=== PATIENT | female | born 1990 | race Caucasian/White ===

== ENCOUNTER 2019-11-09 18:04 | Emergency (ER) | payer OTHER, SELFPAY ==
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
[2019-11-09 18:10] VITALS: BP 124/76; PULSE 78; RESP 16; TEMP 36.6; O2SAT 100
[2019-11-09 18:18] VITALS: RESP 14; O2SAT 99
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
[2019-11-09 19:00] VITALS: BP 120/80; PULSE 88; RESP 17; O2SAT 98
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
[2019-11-09 20:15] VITALS: BP 110/64; PULSE 82; RESP 12; O2SAT 100
== END 2019-11-09 20:15 | disposition home or self-care (01) ==
PROVIDERS: Emergency Provider Emergency Medicine; PCP Internal Medicine
DX: S06.0X1A Concussion with loss of consciousness of 30 minutes or less, initial encounter (principal); Z87.891 Personal history of nicotine dependence; F41.9 Anxiety disorder, unspecified; J45.909 Unspecified asthma, uncomplicated; F32.9 Major depressive disorder, single episode, unspecified; T74.11XA Adult physical abuse, confirmed, initial encounter; Y07.03 Male partner, perpetrator of maltreatment and neglect
CPT/HCPCS: 70450; 70486; 72125; 99284; A9270; L0140

== ENCOUNTER 2020-12-24 13:38 | Emergency (ER) | payer OTHER, SELFPAY ==
[2020-12-24 14:14] VITALS: BP 116/65; PULSE 85; RESP 16; TEMP 37.2; O2SAT 99
--- NOTE | 2020-12-24 14:31 | ED.URI ---
HPI - URI/Sore Throat General Chief Complaint: Upper Respiratory Infection Stated Complaint: runny nose/cough/sore throat Time Seen by Provider: 12/24/20 14:06 Source: patient and RN notes reviewed Mode of arrival: ambulatory Limitations: no limitations History of Present Illness HPI Narrative: Patient presents today complaining of a 2-day history of bilateral ear pressure, sore throat, chest congestion, rhinorrhea, mild cough. Denies fever or shortness of breath. History of asthma. She is taking Tylenol, Aleve, and ibuprofen without relief. Related Data Home Medications Medication Instructions Recorded Confirmed gabapentin 300 mg PO TID 09/05/19 12/24/20 L norgest/e.estradiol-e.estrad 30 tablet PO DAILY 11/09/19 12/24/20 [Ashlyna] Allergies Allergy/AdvReac Type Severity Reaction Status Date / Time No Known Allergies Allergy Verified 12/24/20 14:00 Review of Systems Review of Systems: Narrative: CONSTITUTIONAL: Denies body aches, fever, chills, or sweats. EYES: Denies visual changes, redness, or discharge. ENT: Denies congestion. + Bilateral ear pressure, sore throat, rhinorrhea CARDIOVASCULAR: Denies chest pain, palpitations, or edema. RESPIRATORY: Denies cough or dyspnea.+ Chest congestion GASTROINTESTINAL: Denies abdominal pain, nausea, vomiting, or diarrhea. GENITOURINARY: Denies dysuria or hematuria. SKIN: Denies rash, itching, or wounds. MUSCULOSKELETAL: Denies back pain, joint pain, or myalgia. NEUROLOGIC: Denies headache, numbness, tingling, or weakness. PSYCH: Denies depression or anxiety. [facility] Past Medical History Medical History (Updated 12/24/20 @ 14:38 by Rafia Jeffries, [facility], ) Anemia Ankle fracture, right Anxiety Asthma Depression Former smoker 1/2 PPD for 5 years, quit 04/14/19. Heart palpitations Ovarian cyst UTI (urinary tract infection) Surgical History Surgical History H/O wisdom tooth extraction Family History Family History (Updated 09/10/19 @ 16:30 by Carol Maya PA-C) Grandparent Hypertension Cerebrovascular accident Family history of coronary artery disease Mother COPD (chronic obstructive pulmonary disease) Father Melanoma Sibling Brain tumor Other Family history of malignant neoplasm of cervix Social History Social History (Updated 09/10/19 @ 16:32 by Carol Maya PA-C) Smoking packs per day: 0.5 Smoking cigarettes per day: 10.0 Years smoked: 5 Smoking pack-years: 2.50 Smoking status: Former smoker Tobacco type: cigarettes Second hand tobacco smoke exposure: No Smoking end date: 04/14/19 Alcohol intake: never Substance use: current Substance use type: marijuana Last use: 09/07/19 Gender identity (if verbalized by the patient): Female Spiritual care concerns: No Agree to blood products: Yes Exam Narrative: Exam Narrative: GENERAL: Well-appearing, well-nourished, and in no acute distress. HEAD: Normocephalic, atraumatic. EYES: EOMI. No redness or drainage. Conjunctivae normal. ENT: Mucous membranes pink and moist. Nares clear. No rhinorrhea. TMs normal bilaterally. Throat normal. Uvula midline. NECK: Normal AROM. Supple. No lymphadenopathy. CHEST: No respiratory distress. Mild decreased aeration throughout. HEART: Regular rate and rhythm. No murmur appreciated. Normal peripheral pulses. EXTREMITIES: Normal range of motion. No edema. SKIN: Warm, dry, no rash. Capillary refill normal. Normal skin turgor. NEURO: No focal deficits. Alert and oriented x3. Gait steady. PSYCH: Normal affect. No signs of depression or anxiety. Course Vital Signs Vital signs: Vital Signs Temperature 98.9 F 12/24/20 14:14 Pulse Rate 85 12/24/20 14:14 Respiratory Rate 16 12/24/20 14:14 Blood Pressure 116/65 12/24/20 14:14 Pulse Oximetry 99 12/24/20 14:14 Temperature 98.9 F 12/24/20 14:14 Pulse Rate 85 12/24/20 14:14 Resp
== END 2020-12-24 14:54 | disposition home or self-care (01) ==
PROVIDERS: Emergency Provider Nurse Practitioner; PCP Internal Medicine
DX: J06.9 Acute upper respiratory infection, unspecified (principal); Z87.891 Personal history of nicotine dependence
CPT/HCPCS: 99213; G0463

== ENCOUNTER 2022-06-30 09:14 | Emergency (ER) | payer OTHER, SELFPAY ==
--- NOTE | ~2022-06-30 | XR_ITS ---
EXAMINATION: XR chest 2V DATE: 06/30/2022 12:19 INDICATION: Fever and cough. TECHNIQUE: Frontal and lateral views of the chest were obtained. COMPARISON: Chest 2 views 09/09/2019 FINDINGS: The chest demonstrates clear lungs without pneumonia, pleural effusion, or pneumothorax. Th e heart size is normal. IMPRESSION: 1. No acute cardiopulmonary disease. Reviewed, dictated and finalized at location B.
[2022-06-30 09:24] VITALS: BP 114/78; PULSE 95; RESP 18; TEMP 36.1; O2SAT 100
[2022-06-30 10:16] LABS: Influenza A QL RT-PCR Negative (Negative); Influenza B QL RT-PCR Negative (Negative); SARS-CoV-2 RNA PCR Negative
--- NOTE | 2022-06-30 11:50 | ED.URI ---
HPI - URI/Sore Throat General Chief Complaint: Upper Respiratory Infection Stated Complaint: URI symptoms, swollen lymph nodes Time Seen by Provider: 06/30/22 11:11 Source: patient Mode of arrival: ambulatory Limitations: no limitations History of Present Illness HPI Narrative: This is a 31-year-old female that presents to the emergency department for cold symptoms ongoing over the last 5 days. Reports fever, cough, sore throat, and swollen lymph nodes. Reports similar symptoms in her children. Denies shortness of breath. Related Data Home Medications Medication Instructions Recorded Confirmed gabapentin 300 mg capsule 300 mg PO TID 09/05/19 12/24/20 L norgest/E estradiol-E estrad 30 tablet PO DAILY 11/09/19 12/24/20 0.15 mg-30 mcg (84)/10 mcg(7) tabs,3mos (Ashlyna) Allergies Allergy/AdvReac Type Severity Reaction Status Date / Time No Known Allergies Allergy Verified 06/30/22 11:04 Review of Systems Review of Systems: CONSTITUTIONAL: Reports fever ENT: Reports rhinorrhea, congestion, sore throat, and otalgia. RESPIRATORY: Reports cough. Denies dyspnea. All systems reviewed & are unremarkable except as noted in HPI and below PMFSH Past Medical History Medical History (Updated 06/30/22 @ 13:33 by Jenni Nair PA-C) Anemia Ankle fracture, right Anxiety Asthma Depression Former smoker 1/2 PPD for 5 years, quit 04/14/19. Heart palpitations Ovarian cyst UTI (urinary tract infection) Surgical History Surgical History H/O wisdom tooth extraction Family History Family History (Updated 09/10/19 @ 16:30 by Carol Maya PA-C) Grandparent Hypertension Cerebrovascular accident Family history of coronary artery disease Mother COPD (chronic obstructive pulmonary disease) Father Melanoma Sibling Brain tumor Other Family history of malignant neoplasm of cervix Social History Social History (Updated 06/30/22 @ 13:30 by Jenni Nair PA-C) Smoking packs per day: 0.5 Smoking cigarettes per day: 10.0 Years smoked: 5 Smoking pack-years: 2.50 Smoking status: Current some day smoker Tobacco type: cigarettes Second hand tobacco smoke exposure: No Alcohol intake: never Substance use: current Substance use type: marijuana Last use: 09/07/19 Gender identity (if verbalized by the patient): Female Spiritual care concerns: No Agree to blood products: Yes Exam Narrative: GENERAL: Well-appearing, well-nourished, and in no acute distress. HEAD: Normocephalic, atraumatic. EYES: EOMI. ENT: Nares clear, no rhinorrhea or epistaxis. Mucous membranes moist. Oropharynx with symmetric tonsillar hypertrophy and erythema, no exudate or other lesions. Bilateral TMs pearly corley non-bulging NECK: Supple. No adenopathy or masses. CHEST: Clear to auscultation. No respiratory distress. No wheezes rales or rhonchi HEART: Regular rate and rhythm. No murmur heard. Normal peripheral pulses. EXTREMITIES: Normal range of motion. No edema. SKIN: Warm, dry, no rash. NEURO: No focal deficits. Alert and oriented x3. PSYCH: Normal mood and affect Course Vital Signs Vital signs: Vital Signs Temperature 97.0 F L 06/30/22 09:24 Pulse Rate 95 06/30/22 09:24 Respiratory Rate 18 06/30/22 09:24 Blood Pressure 114/78 06/30/22 09:24 Pulse Oximetry 100 06/30/22 09:24 Oxygen Delivery Room Air 06/30/22 09:24 Temperature 97.0 F L 06/30/22 09:24 Pulse Rate 95 06/30/22 09:24 Respiratory Rate 18 06/30/22 09:24 Blood Pressure 114/78 06/30/22 09:24 Pulse Oximetry 100 06/30/22 09:24 Oxygen Delivery Room Air 06/30/22 09:24 MDM - URI/Sore Throat MDM Narrative Medical decision making narrative: Patient presents to the emergency department for cold symptoms ongoing over the last 5 days. She is afebrile and nontoxic-appearing. Oxygen saturation is normal on room air. Lungs are clear on
[2022-06-30 12:10] LABS: Basophils Percent Auto 0.3 % (0.2-1.2); Eosinophils Percent Auto 0.5 % (0-4.4); Hematocrit 40.8 % (37.0-47.0); Hemoglobin 13.7 g/dL (12.0-15.0); Immature Granulocyte Absolute 0.02 K/mm3 (0.00-0.031); Immature Granulocyte Percent A 0.2 % (0-0.5); Lymphocytes Absolute Auto 2.05 K/mm3 (0.9-3.2); Lymphocytes Percent Auto 23.1 % (18.3-44.2); Mean Corpuscular HGB Conc 33.6 g/dl (32-36); Mean Corpuscular Hemoglobin 32.1 pg (26-34); Mean Corpuscular Volume 95.6 fl (80-100); Mean Platelet Volume 9.2 fl (7.4-10.4); Monocytes Absolute Auto 0.7 K/mm3 (0.1-0.6); Monocytes Percent Auto 7.9 % (2.6-8.5); Platelet Count Result 236 k/mm3 (150-375); Red Blood Count 4.27 M/mm3 (4.2-5.4); Red Cell Distribution Width 12.8 % (11.5-14.5); White Blood Count 8.9 K/mm3 (4.5-10.0)
[2022-06-30 12:27] LABS: Alanine Aminotransferase 56 U/L (6-35); Albumin Level 3.9 g/dL (3.5-5.1); Alkaline Phosphatase 68 U/L (38-126); Anion Gap 10 mmol/L (8-16); Aspartate Amino Transferase 32 U/L (14-36); Bilirubin,Total 0.2 mg/dL (0.2-1.3); Blood Urea Nitrogen 6 mg/dL (7-17); Calcium 8.5 mg/dL (8.4-10.2); Carbon Dioxide 22 mmol/L (22-30); Chloride 106 mmol/L (98-107); Estimated CRCL calculation 92 ml/min; Estimated Glomerular Filt Rate > 60; Glucose 100 mg/dL (65-110); Potassium 3.8 mmol/L (3.4-5.0); Sodium 138 mmol/L (137-145)
[2022-06-30 13:17] LABS: Monoscreen Negative (Negative); Negative Monotest Control Negative (Negative); Positive Monotest Control Positive (Positive)
[2022-06-30 13:38] VITALS: BP 116/65; PULSE 80; RESP 18; O2SAT 100
== END 2022-06-30 13:40 | disposition home or self-care (01) ==
PROVIDERS: Physician Assistant; Emergency Provider Emergency Medicine; PCP Internal Medicine
DX: J06.9 Acute upper respiratory infection, unspecified (principal); Z20.822 Contact with and (suspected) exposure to COVID-19; J45.909 Unspecified asthma, uncomplicated; Z86.2 Personal history of diseases of the blood and blood-forming organs and certain disorders involving the immune mechanism; Z87.440 Personal history of urinary (tract) infections; Z87.891 Personal history of nicotine dependence
CPT/HCPCS: 36415; 71046; 80053; 85025; 86308; 87081; 87502; 87880; 99283; C9803; U0003; U0005

== ENCOUNTER 2023-05-19 12:20 | Outpatient (RCR) | payer OTHER, SELFPAY ==
--- NOTE | 2023-05-20 17:24 | STOPEVAL1 ---
Assessment and note entered by Jane Maire, NETWORK/TELECOM ENGINEER Reported Pain Level Pain Score 0: Self Report Assessment ST Clinical Summary VOICE EVALUATION Patient was seen for a Voice Evaluation at the request of her physician, Dr. Camejo. Patient reported, as mentioned above, she was diagnosed with bilateral vocal polyps, later calling them nodules, and had surgery to remove them in April of this year. She stated that she gave herself five days of vocal rest and then when she began speaking, her voice sounded almost normal, but then returned to the lower pitch boys voice that she describes as her speaking voice today. Additionally, she stated that today is one of the worse days. Patient admits to smoking cigarettes for at least the last eight years but that she is now down to half a pack a day. Patient's voice was evaluated using several measures. In general the decibel level of her voice during all tasks was judged to be greater than average. Average speaking voice for this speech therapy room usually ranges from 68-74 decibels. Patient's vocal volume ranged from 76-83 decibels throughout different tasks. When confronted with this, patient reported she did not realize she was speaking louder than normal but assumed her loudness was in the average range. Today, her pitch range was less than expected however she did range from 90-389 hertz. She reports she used to be able to reach higher pitch range when singing prior to onset of vocal nodules. Finally, patient continues to complain of pain at times in the left side of her neck and she occasionally feels pulling from the posterior left side of her neck when speaking. Patient was instructed in the use of both a vocal hygiene program and instructions for reducing the effects of gastroesophageal disease (GERD). Patient voiced understanding of all recommendations. It is recommended that patient continue in structured Speech Therapy twice weekly for four weeks for instruction of appropriate respiration/ phonation coordination, to expose the patient to a
--- NOTE | 2023-05-20 17:25 | STOPEVAL1 ---
Assessment and note entered by Jane Marie, GLOBAL CHIEF EXPERIENCE OFFICER Reported Pain Level Pain Score 0: Self Report Assessment ST Clinical Summary VOICE EVALUATION Patient was seen for a Voice Evaluation at the request of her physician, Dr. Camejo. Patient reported, as mentioned above, she was diagnosed with bilateral vocal polyps, later calling them nodules, and had surgery to remove them in April of this year. She stated that she gave herself five days of vocal rest and then when she began speaking, her voice sounded almost normal, but then returned to the lower pitch boys voice that she describes as her speaking voice today. Additionally, she stated that today is one of the worse days. Patient admits to smoking cigarettes for at least the last eight years but that she is now down to half a pack a day. Patient's voice was evaluated using several measures. In general the decibel level of her voice during all tasks was judged to be greater than average. Average speaking voice for this speech therapy room usually ranges from 68-74 decibels. Patient's vocal volume ranged from 76-83 decibels throughout different tasks. When confronted with this, patient reported she did not realize she was speaking louder than normal but assumed her loudness was in the average range. Today, her pitch range was less than expected however she did range from 90-389 hertz. She reports she used to be able to reach higher pitch range when singing prior to onset of vocal nodules . Finally, patient continues to complain of pain at times in the left side of her neck and she occasionally feels pulling from the posterior left side of her neck when speaking. Patient was instructed in the use of both a vocal hygiene program and instructions for reducing the effects of gastroesophageal disease (GERD). Patient voiced understanding of all recommendations. It is recommended that patient continue in structured Speech Therapy twice weekly for four weeks for instruction of appropriate respiration/ phonation coordination, to expose the patient to a
--- NOTE | 2023-06-24 14:02 | STOPDC ---
Assessment and note entered by Jane Marie CARDIOVASCULAR OR NURSE Evaluation Information Assessment Status Discharge - Pt Not Presen Assessment ST Clinical Summary DISCHARGE SUMMARY Patient was seen for an evaluation only. She did not schedule, contact facility, or attempt to return to structured Speech Therapy for dysphonia. Plan of Care ST Services Indicated Yes
== END 2023-06-26 12:14 | disposition home or self-care (01) ==
LOC: ANHST 12:20
PROVIDERS: PCP Internal Medicine; Visit Provider Otolaryngology
DX: J38.2 Nodules of vocal cords (principal)
CPT/HCPCS: 92524

== ENCOUNTER 2023-11-24 15:04 | Outpatient (CLI) | payer OTHER, SELFPAY ==
[2023-11-24 18:49] LABS: Hemoglobin 14.5 g/dL (12.0-15.0); Mean Corpuscular HGB Conc 32.2 g/dl (32-36); Mean Corpuscular Hemoglobin 30.7 pg (26-34); Mean Corpuscular Volume 95.3 fl (80-100); Platelet Count Result 353 k/mm3 (150-375); Red Blood Count 4.72 M/mm3 (4.2-5.4); Red Cell Distribution Width 12.6 % (11.5-14.5); White Blood Count 12.1 K/mm3 (4.5-10.0)
[2023-11-24 18:53] LABS: Alanine Aminotransferase 37 U/L (6-35); Albumin Level 4.3 g/dL (3.5-5.1); Alkaline Phosphatase 86 U/L (38-126); Anion Gap 7 mmol/L (8-16); Aspartate Amino Transferase 59 U/L (14-36); Bilirubin,Total 0.5 mg/dL (0.2-1.3); Blood Urea Nitrogen 9 mg/dL (7-17); Calcium 9.2 mg/dL (8.4-10.2); Carbon Dioxide 23 mmol/L (22-30); Chloride 108 mmol/L (98-107); Cholesterol 195 mg/dL (0-200); Estimated Glomerular Filt Rate > 60; Glucose 81 mg/dL (65-110); HDL Direct 47 mg/dL; Potassium 4.1 mmol/L (3.4-5.0); Sodium 138 mmol/L (137-145); Triglycerides 159 mg/dL (<150)
[2023-11-24 19:04] LABS: LDL Cholesterol Direct 133 mg/dL
[2023-11-24 19:39] LABS: Appearance Urine Clear (Clear); Bacteria Urine None Seen /hpf; Bilirubin Urine Negative (Negative); Blood Urine Negative (Negative); Color Urine Yellow (Yellow); Glucose Urine UA Negative (Negative); Ketones Urine Negative (Negative); Leukocyte Esterase Ur 1+ LEU/UL (Negative); Nitrate Urine Negative (Negative); Non Pathogenic Casts 0-2; Protein Urine Negative (Negative); RBC Urine 0-2 /hpf (0-2); Specific Grav Ur 1.021 (1.001-1.035); Squamous Epithelial Cell Urine Occasional /hpf (Few); Urobilinogen Urine 0.2 mg/dL (<2.0); pH Urine 5.5 (5.0-9.0)
[2023-11-24 19:43] LABS: Add Urine Microscopic? YES
[2023-11-24 20:06] LABS: Hemoglobin A1C 5.1 % (<5.7)
== END 2023-11-24 15:05 | disposition home or self-care (01) ==
LOC: ANHBWCLAB 15:06
PROVIDERS: PCP Nurse Practitioner Adult Health; Visit Provider Nurse Practitioner Adult Health
DX: R63.1 Polydipsia (principal); R39.89 Other symptoms and signs involving the genitourinary system
CPT/HCPCS: 36415; 80053; 80061; 83036; 84443; 85027

== ENCOUNTER 2024-02-12 12:27 | Emergency (ER) | payer OTHER, SELFPAY ==
--- NOTE | 2024-02-12 12:40 | ED.DENTAL ---
HPI - Dental/Oral General Chief complaint: Dental/Oral Stated complaint: Mouth pain Time Seen by Provider: 02/12/24 12:40 Source: patient, RN notes reviewed and old records reviewed Mode of arrival: ambulatory Limitations: no limitations History of Present Illness HPI Narrative: 33-year-old female presents to the [facility]. States she had a piece of food caught between her teeth 2-3 days ago, was able to get it out. Tried getting in with a primary care provider dental provider and cannot see 1 because it cost money upfront Inflammation noted. Tender to touch. States that she normally goes to [facility] Related Data Home Medications Medication Instructions Recorded Confirmed albuterol sulfate 90 mcg/actuation 1 puff inhalation Q4H PRN 11/24/23 02/12/24 aerosol inhaler (Ventolin HFA) Shortness Of Breath Or Wheezing gabapentin 300 mg capsule 300 mg PO TID 11/24/23 02/12/24 Allergies Allergy/AdvReac Type Severity Reaction Status Date / Time No Known Allergies Allergy Verified 02/12/24 12:33 Review of Systems Review of Systems: All systems reviewed & are unremarkable except as noted in HPI and below Constitutional: Constitutional: Reports no additional constitutional complaints Eyes: Eyes: Reports no additional eye complaints ENT: Reports as per HPI and Reports dental pain Cardiovascular: Cardiovascular: Reports no additional cardiovascular complaints, Denies chest pain and Denies dyspnea Respiratory: Respiratory: Reports no additional respiratory complaints, Denies chest congestion, Denies cough and Denies dyspnea Gastrointestinal: Gastrointestinal: Reports no additional gastrointestinal complaints, Denies abdominal pain, Denies nausea and Denies vomiting Musculoskeletal: Musculoskeletal: Reports no additional musculoskeletal complaints Integumentary/Breasts: Skin/Breast: Reports system reviewed and no additional complaints, except as docu Neurologic: Reports system reviewed and no additional complaints, except as documented Psychiatric: Psychiatric: Reports no additional psychiatric complaints Allergic/Immunologic: Allergic/Immunologic: Reports no additional allergic/immunologic complaints [facility] Past Medical History Medical History Anemia Ankle fracture, right Anxiety Asthma Depression Former smoker 1/2 PPD for 5 years, quit 04/14/19. Heart palpitations Ovarian cyst UTI (urinary tract infection) Surgical History Surgical History H/O wisdom tooth extraction Family History Family History Grandparent Hypertension Cerebrovascular accident Family history of coronary artery disease Mother COPD (chronic obstructive pulmonary disease) Father Melanoma Sibling Brain tumor Other Family history of malignant neoplasm of cervix Social History Social History Smoking packs per day: 0.5 Smoking cigarettes per day: 10.0 Years smoked: 5 Smoking pack-years: 2.50 Smoking status: Current every day smoker Tobacco type: cigarettes Second hand tobacco smoke exposure: No Alcohol intake: never Substance use: current Substance use type: marijuana Last use: 09/07/19 Lack of Transportation: No Lack of Food: Never True Current Housing: I Have Housing Concerned About Future Housing: No Difficulty Paying Gas/Electric Bills: No Difficulty Paying for Meds: No Currently Unemployed: No Education: High School Diploma/GED Difficulty w/ Childcare or Family Care: No Living arrangements: with family Additional occupation/education comments: [employer] Gender identity (if verbalized by the patient): Female Spiritual care concerns: No Agree to blood products: Yes Comments At the time of my signature, I reviewed and agree wi
[2024-02-12 12:44] VITALS: BP 118/73; PULSE 76; RESP 16; TEMP 36.4; O2SAT 100
== END 2024-02-12 13:07 | disposition home or self-care (01) ==
PROVIDERS: Emergency Provider Nurse Practitioner; PCP Nurse Practitioner Adult Health
DX: K04.7 Periapical abscess without sinus (principal); J45.909 Unspecified asthma, uncomplicated; Z87.891 Personal history of nicotine dependence
CPT/HCPCS: 99213; G0463

== ENCOUNTER 2024-03-11 18:31 | Emergency (ER) | payer OTHER, SELFPAY ==
--- NOTE | 2024-03-11 18:40 | ED.GENADULT ---
HPI - General Adult General Chief complaint: Skin/Abscess/Foreign Body Stated complaint: Swollen Hands/Arms Source: patient Mode of arrival: ambulatory Limitations: no limitations History of Present Illness HPI narrative: 33-year-old female presented for complaint allergic reaction to hornet stings sustained yesterday. States she was reaching in to the pool to clean out debris when she was stung the first time on the left hand, she was subsequently stung on the right forearm few moments later. Endorses swelling and itching to the sites. The left hand and forearm are more swollen today, resulting in decreased range of motion to the hand. Has taken Benadryl, aspirin, applied Epson salt, apple cider vinegar for symptoms. Denies lip, tongue, or throat swelling, shortness of breath or wheezing, n/v/d/f/c. Related Data Home Medications Medication Instructions Recorded Confirmed albuterol sulfate 90 mcg/actuation 1 puff inhalation Q4H PRN 11/24/23 03/11/24 aerosol inhaler (Ventolin HFA) Shortness Of Breath Or Wheezing gabapentin 300 mg capsule 300 mg PO TID 11/24/23 03/11/24 Allergies Allergy/AdvReac Type Severity Reaction Status Date / Time No Known Allergies Allergy Verified 03/11/24 18:44 Review of Systems Review of Systems: CONSTITUTIONAL: Denies body aches, fever, chills, or sweats. EYES: Denies visual changes, redness, or discharge. ENT: Denies rhinorrhea, congestion CARDIOVASCULAR: Denies chest pain, palpitations, or edema. RESPIRATORY: Denies cough or dyspnea. GASTROINTESTINAL: Denies abdominal pain, nausea, vomiting, or diarrhea. SKIN: reports swelling and itching to bilateral UEs. MUSCULOSKELETAL: Denies back pain, joint pain, or myalgia. NEUROLOGIC: Denies headache, numbness, tingling, or weakness. [facility] Past Medical History Medical History Anemia Ankle fracture, right Anxiety Asthma Depression Former smoker 1/2 PPD for 5 years, quit 04/14/19. Heart palpitations Ovarian cyst UTI (urinary tract infection) Surgical History Surgical History H/O wisdom tooth extraction Family History Family History Grandparent Hypertension Cerebrovascular accident Family history of coronary artery disease Mother COPD (chronic obstructive pulmonary disease) Father Melanoma Sibling Brain tumor Other Family history of malignant neoplasm of cervix Social History Social History Smoking packs per day: 0.5 Smoking cigarettes per day: 10.0 Years smoked: 5 Smoking pack-years: 2.50 Smoking status: Current every day smoker Tobacco type: cigarettes Second hand tobacco smoke exposure: No Alcohol intake: never Substance use: current Substance use type: marijuana Last use: 09/07/19 Lack of Transportation: No Lack of Food: Never True Current Housing: I Have Housing Concerned About Future Housing: No Difficulty Paying Gas/Electric Bills: No Difficulty Paying for Meds: No Currently Unemployed: No Education: High School Diploma/GED Difficulty w/ Childcare or Family Care: No Living arrangements: with family Additional occupation/education comments: [employer] Gender identity (if verbalized by the patient): Female Spiritual care concerns: No Agree to blood products: Yes Comments At time of signature, I have reviewed and agree with nursing past medical, surgical, social and family history unless otherwise noted. Please see nursing chart for further information. There is no relevant family history pertinent to the presenting complaint Exam Narrative: GENERAL: Well-appearing EYES: conjunctivae clear, and EOMI. ENT: Mucous membranes moist. Oropharynx without edema, erythema or lesions. No soft palate or uvula edema, n
[2024-03-11 18:42] VITALS: BP 135/96; PULSE 95; RESP 16; TEMP 37.3; O2SAT 98
[2024-03-11] MEDS: KETOROLAC (*BKC) 60 MG/2 ML VIAL IM (18:53)
[2024-03-11] MEDS: methylPREDNISolone SOD SUCC 125 MG VIAL IM (18:53)
[2024-03-11] MEDS: FAMOTIDINE 20 MG TABLET 40 MG PO (19:05)
== END 2024-03-11 19:20 | disposition home or self-care (01) ==
PROVIDERS: Emergency Provider Nurse Practitioner Family; PCP Nurse Practitioner Adult Health
DX: T63.451A Toxic effect of venom of hornets, accidental (unintentional), initial encounter (principal); J45.909 Unspecified asthma, uncomplicated
CPT/HCPCS: 96372; 99214; A9270; G0463; J1885; J2919

== ENCOUNTER 2024-08-17 11:19 | Emergency (ER) | payer OTHER, SELFPAY ==
--- NOTE | 2024-08-17 11:34 | ED.URI ---
HPI - URI/Sore Throat General Chief Complaint: Upper Respiratory Infection Stated Complaint: SORE THROAT/SWOLLEN GLANDS/RUNNY NOSE/CHILLS Time Seen by Provider: 08/17/24 11:34 History of Present Illness HPI Narrative: 33-year-old female with history of asthma presented for complaint cough, nasal congestion, sore throat body aches. Onset yesterday. Daughter with similar symptoms. Denies shortness of breath, wheezing, nausea, vomiting, diarrhea. Taking aspirin and DayQuil for symptoms. Smokes a pack per day. Related Data Home Medications Medication Instructions Recorded Confirmed gabapentin 300 mg capsule 300 mg PO TID 11/24/23 08/17/24 phentermine 37.5 mg tablet 37.5 mg PO DIRECTED 08/17/24 08/17/24 Allergies Allergy/AdvReac Type Severity Reaction Status Date / Time No Known Allergies Allergy Verified 08/17/24 11:28 Review of Systems Review of Systems: CONSTITUTIONAL: Reports body aches, fever, chills, or sweats. EYES: Denies visual changes, redness, or discharge. ENT: Reports rhinorrhea, congestion, sore throat CARDIOVASCULAR: Denies chest pain, palpitations, or edema. RESPIRATORY: Reports cough Denies dyspnea. GASTROINTESTINAL: Denies abdominal pain, nausea, vomiting, or diarrhea. SKIN: Denies rash NEUROLOGIC: Denies headache PMFSH Past Medical History Medical History Anemia Ankle fracture, right Anxiety Asthma Depression Former smoker 1/2 PPD for 5 years, quit 04/14/19. Heart palpitations Ovarian cyst UTI (urinary tract infection) Surgical History Surgical History H/O wisdom tooth extraction Family History Family History Grandparent Hypertension Cerebrovascular accident Family history of coronary artery disease Mother COPD (chronic obstructive pulmonary disease) Father Melanoma Sibling Brain tumor Other Family history of malignant neoplasm of cervix Social History Social History Smoking packs per day: 0.5 Smoking cigarettes per day: 10.0 Years smoked: 5 Smoking pack-years: 2.50 Smoking status: Current every day smoker Tobacco type: cigarettes Second hand tobacco smoke exposure: No Alcohol intake: never Substance use: current Substance use type: marijuana Last use: 09/07/19 Lack of Transportation: No Lack of Food: Never True Current Housing: I Have Housing Concerned About Future Housing: No Difficulty Paying Gas/Electric Bills: No Difficulty Paying for Meds: No Currently Unemployed: No Education: High School Diploma/GED Difficulty w/ Childcare or Family Care: No Living arrangements: with family Additional occupation/education comments: [employer] Gender identity (if verbalized by the patient): Female Spiritual care concerns: No Agree to blood products: Yes Exam Narrative: GENERAL: Mildly Ill-appearing, no acute distress. EYES: conjunctivae clear ENT: Mucous membranes moist. TM pearly corley with normal light reflex bilaterally; no tragal tenderness. Oropharynx not erythematous without lesions. Tonsils not enlarged and without exudate. No drooling, no hoarseness, no trismus, uvula midline. No tripod positioning, hot potato voice, or soft palate swelling. NECK: Supple. No lymphadenopathy CHEST: Clear and diminished to auscultation, breath sounds equal. No respiratory distress, speaks in full sentences. HEART: Regular rate and rhythm. No murmur heard. SKIN: Warm, dry, no rash. NEURO: Alert and oriented x3. Course Course Emergency Course: Patient is aware of diagnosis, understands and agrees to treatment plan. Anticipatory guidance given. Patient agrees to follow-up as directed and is aware of reasons to seek care at the emergency department. Portions of this record may have been created with voice recognition software Level of Care: Express Care Visit Vital Signs Vital signs: Vital Signs Temperature 98.2 F 08/17/24 11:41 Pulse Rate 94 08/17/24 11:41 Respiratory Rate 16 08/17/24 11:41 Blood Pressure 135/96 H 08/17/24 11:41 Pulse Oximetry 98 08/17/24 11:41 Temperature 98.2 F 08/17/24 11:41 Pulse Rate 94 08/17/24 11:41 Respiratory Rate 16 08/17/24 11:41 Blood Pressure 135/96 H 08/17/24 11:41 Pulse Oximetry 98 08/17/24 11:41 MDM - URI/Sore Throat MDM Narrative Medical decision making narrative: strep result reviewed with pt. declined viral testing, declined chest x-ray. Advise supportive treatments. Patient is appropriate for outpatient treatment and follow-up. Differential Diagnosis Differential diagnosis: Likely upper respiratory infection, viral infection and pharyngitis Lab Data Labs: Lab Results 08/17/24 Range/Units 11:46 POC Grp A Strep Screen Negative (Negative) Discharge Plan Discharge Clinical Impression: Viral infection Patient Disposition: Home, Self-Care Condition: Stable Instructions: Antibiotic Form, Acute Bronchitis (ED) Additional Instructions: Rapid strep swab was negative today You will be notified in a few days if the culture comes back positive for strep, and appropriate antibiotics will be called in at that time. if symptoms are due to a viral illness, it is not treated with antibiotics. Viral symptoms can be present for up to 10-14 days. Take steroid as directed Recommendations: Flonase spray and Zyrtec for sinus congestion Cough syrup may cause drowsiness; avoid driving or take it at night time. Tylenol every 8 hours as needed for pain/fever Soft foods, cool liquids, warm tea. Gargle with warm saltwater twice a day. Chloraseptic spray and throat lozenges. Rest and stay hydrated. --Follow up with your PCP --Go to the ER immediately if you cannot swallow your saliva, trouble breathing/wheezing, throat swelling, pain is persistent and severe Prescriptions: New benzonatate 200 mg capsule 200 mg PO TID PRN (Reason: cough) Qty: 20 0RF prednisone 50 mg tablet 50 mg PO DAILY Qty: 5 0RF No Action famotidine [Pepcid] 40 mg tablet 40 mg PO DAILY Qty: 10 0RF phentermine 37.5 mg tablet 37.5 mg PO DIRECTED gabapentin 300 mg capsule 300 mg PO TID L norgest/e.estradiol-e.estrad [Ashlyna] 0.15 mg-30 mcg (84)/10 mcg (7) tablets,dose pack,3 month 1 tablet PO DAILY Qty: 182 6RF albuterol sulfate [Ventolin HFA] 90 mcg/actuation HFA aerosol inhaler 1 puff inhalation Q4H PRN (Reason: Shortness Of Breath Or Wheezing) Qty: 8.5 3RF Follow-up/Referrals: Hilda,Ej Lozano MD [Primary Care Provider] -
[2024-08-17 11:41] VITALS: BP 135/96; PULSE 94; RESP 16; TEMP 36.8; O2SAT 98
[2024-08-17 11:51] LABS: EDSTREPNEGPOS1 Negative (Negative)
== END 2024-08-17 12:07 | disposition home or self-care (01) ==
PROVIDERS: Emergency Provider Nurse Practitioner Family; PCP Internal Medicine
DX: B34.9 Viral infection, unspecified (principal); F41.8 Other specified anxiety disorders; J45.909 Unspecified asthma, uncomplicated; F17.210 Nicotine dependence, cigarettes, uncomplicated
CPT/HCPCS: 87081; 87880; 99213; G0463

== ENCOUNTER 2024-08-26 08:46 | Emergency (ER) | payer OTHER, SELFPAY ==
--- NOTE | 2024-08-26 08:50 | ED.URI ---
HPI - URI/Sore Throat General Chief Complaint: Upper Respiratory Infection Stated Complaint: cough/dizzy / stuffy nose Time Seen by Provider: 08/26/24 08:49 Source: patient Mode of arrival: ambulatory Limitations: no limitations History of Present Illness HPI Narrative: Aiyana is a 33-year-old female patient presenting to the clinic today with complaints of cough, sinus congestion, feeling dizzy when coughing, shortness of breath, and stuffy nose x3 weeks. She reports that she was seen on August 16 and given prescription for Tessalon Perles and steroids however her symptoms have gotten worse. She is coughing up green/yellow phlegm. Feels as though she cannot lay flat and breath. When she coughs she says the shanks are moving. Also having ringing and pain in the right ear. No known recent fever, chills, or body aches MD elicited complaint: cough, nasal congestion and sinus pain Related Data Home Medications ?Medication ?Instructions ?Recorded ?Confirmed ?Last Taken ?Type gabapentin 300 mg capsule 300 mg PO TID 11/24/23 08/17/24 Unknown History phentermine 37.5 mg tablet 37.5 mg PO DIRECTED 08/17/24 08/17/24 Unknown History Allergies Allergy/AdvReac Type Severity Reaction Status Date / Time No Known Allergies Allergy Verified 08/17/24 11:28 Review of Systems Review of Systems: Pertinent positives per HPI. Patient denies any fever, chills, rash, headache, visual changes, chest pain, palpitations, nausea, vomiting, diarrhea, constipation, abdominal pain, or any urinary issues. [facility] Past Medical History Medical History Former smoker 1/2 PPD for 5 years, quit 04/14/19. Heart palpitations Anemia Depression Anxiety Ankle fracture, right Ovarian cyst UTI (urinary tract infection) Asthma Surgical History Surgical History H/O wisdom tooth extraction Family History Family History Grandparent Hypertension Cerebrovascular accident Family history of coronary artery disease Mother COPD (chronic obstructive pulmonary disease) Father Melanoma Sibling Brain tumor Other Family history of malignant neoplasm of cervix Social History Social History Smoking packs per day: 0.5 Smoking cigarettes per day: 10.0 Years smoked: 5 Smoking pack-years: 2.50 Smoking status: Current every day smoker Tobacco type: cigarettes Second hand tobacco smoke exposure: No Alcohol intake: never Substance use: current Substance use type: marijuana Last use: 09/07/19 Lack of Transportation: No Lack of Food: Never True Current Housing: I Have Housing Concerned About Future Housing: No Difficulty Paying Gas/Electric Bills: No Difficulty Paying for Meds: No Currently Unemployed: No Education: High School Diploma/GED Difficulty w/ Childcare or Family Care: No Living arrangements: with family Additional occupation/education comments: [employer] Gender identity (if verbalized by the patient): Female Spiritual care concerns: No Agree to blood products: Yes Comments At the time of my signature, I reviewed and agree with the nursing past medical, surgical, social, and family history. There is no relevant family history pertinent to the patient complaint. Exam Narrative: General: Well-developed, obese, in no apparent distress Head: Normocephalic, atraumatic Eyes: Pupils equally round and reactive to light bilaterally, EOM intact, sclera and conjunctive clear, no discharge, lids normal Ears: Left TM intact and congested, right TM intact, bulging, red,, ear canals clear, no drainage, grossly hearing normal. Nose: Nares patent, green nasal discharge, moderate inflammation, maxillary or frontal sinus tenderness. Mouth: Oral pharynx without lesions or masses, good dentition, MMM. Postnasal drip Neck: Supple, trachea midline, no enlargement of anterior or posterior cervical nodes, no thyroid masses or goiter palpable. Cardio: Regular rate and rhythm, s1 and s2 normal, no murmur appreciated. Resp: Inspiratory wheezing with expiratory rhonchi throughout lung hernández, no rales or rubs. Able to speak in full sentences without taking breath in between words, SpO2 is 100% on room air Course Course Emergency Course: Portions of this record may have been created with voice recognition software. Level of Care: Express Care Visit Vital Signs Vital signs: Vital signs reviewed MDM - URI/Sore Throat MDM Narrative Medical decision making narrative: At the time of visit patient is resting comfortably on the exam table. Patient appears to be nontoxic. Plan: I suspect patient has sinusitis, bronchitis, and right otitis media. Prescription for Augmentin, prednisone, and albuterol inhaler was sent to the pharmacy. Supportive measures were discussed with the patient and they voiced understanding discharge instructions and agrees to treatment plan. Return precautions reviewed Differential Diagnosis Differential diagnosis: Likely upper respiratory infection, croup, otitis media, sinusitis, viral infection, bronchitis, influenza, pharyngitis and other (COVID) Discharge Plan Discharge Clinical Impression: Bronchitis, Acute right otitis media Sinusitis Qualifiers: Sinusitis location: maxillary Chronicity: acute Recurrence: non-recurrent Qualified Code(s): J01.00 - Acute maxillary sinusitis, unspecified Patient Disposition: Home, Self-Care Condition: Stable Instructions: Antibiotic Form, Ear Infection (ED), Acute Bronchitis (ED), Rhinosinusitis (ED) Additional Instructions: Take prescription medications only as prescribed-albuterol inhaler, Augmentin, and prednisone Increase fluids and stay well hydrated Tylenol/motrin for pain/fever Flonase and OTC antihistamines as directed Vicks vapor rub to open sinuses Sinus rinses for congestion Cepacol spray, cough drops, throat lozenges, warm tea with honey/lemon, gargle salt water to soothe throat BRAT diet for diarrhea Clear liquids x 24 hours then advance as tolerated for nausea/vomiting Go to the ED if you develop a worsening in your condition- high fever not controlled by Tylenol or Motrin, dehydration, weakness, lethargy, shortness of breath, or chest pain. Follow up with your PCP in 3-5 days if symptoms persist. Patient Language: Danish Prescriptions: New amoxicillin-pot clavulanate 875-125 mg tablet 1 tablet PO Q12H 10 Days Qty: 20 0RF prednisone 50 mg tablet 50 mg PO DAILY 5 Days Qty: 5 0RF albuterol sulfate 90 mcg/actuation aerosol powdr breath activated 2 inh inhalation Q4-6H PRN (Reason: shortness of breath or wheezing) 30 Days Qty: 1 0RF No Action famotidine [Pepcid] 40 mg tablet 40 mg PO DAILY Qty: 10 0RF phentermine 37.5 mg tablet 37.5 mg PO DIRECTED benzonatate 200 mg capsule 200 mg PO TID PRN (Reason: cough) Qty: 20 0RF prednisone 50 mg tablet 50 mg PO DAILY Qty: 5 0RF gabapentin 300 mg capsule 300 mg PO TID L norgest/e.estradiol-e.estrad [Ashlyna] 0.15 mg-30 mcg (84)/10 mcg (7) tablets,dose pack,3 month 1 tablet PO DAILY Qty: 182 6RF albuterol sulfate [Ventolin HFA] 90 mcg/actuation HFA aerosol inhaler 1 puff inhalation Q4H PRN (Reason: Shortness Of Breath Or Wheezing) Qty: 8.5 3RF Follow-up/Referrals: UNKNOWN,DOCTOR [Non-Staff] - Stand Alone Forms: Work/School Release IP Time of Disposition: 09:13 Quality NIHSS Nursing Documentation ED NIHSS nursing documentation: reviewed/agree
[2024-08-26 08:58] VITALS: BP 123/87; PULSE 92; RESP 20; TEMP 36.7; O2SAT 100
== END 2024-08-26 09:13 | disposition home or self-care (01) ==
PROVIDERS: Emergency Provider Nurse Practitioner Family; PCP Internal Medicine
DX: J40 Bronchitis, not specified as acute or chronic (principal); H92.01 Otalgia, right ear; J01.00 Acute maxillary sinusitis, unspecified; F17.210 Nicotine dependence, cigarettes, uncomplicated; J45.909 Unspecified asthma, uncomplicated
CPT/HCPCS: 99213; G0463

== ENCOUNTER 2025-04-04 14:48 | Outpatient (CLI) | payer OTHER, SELFPAY ==
--- NOTE | ~2025-04-04 | XR_ITS ---
EXAM/ PROCEDURE: XR toe 4th LT min 2V, XR toe 5th LT min 2V - 04/04/2025 15:15 CDT HISTORY: 34 years old Female with foot pain COMPARISON: None available TECHNIQUE: Two view(s) each FINDINGS/ IMPRESSION: There are no fractures or dislocations.Joint spaces are within normal limits. Reviewed, dictated and finalized at location A.
--- NOTE | ~2025-04-04 | XR_ITS ---
EXAM/ PROCEDURE: XR foot RT min 3V - 04/04/2025 15:15 CDT HISTORY: 34 years old Female with foot pain COMPARISON: None available TECHNIQUE: Three view(s) FINDINGS/ IMPRESSION: There are no fractures or dislocations.Joint spaces are within normal limits. Reviewed, dictated and finalized at location A.
--- NOTE | ~2025-04-04 | XR_ITS ---
EXAM/ PROCEDURE: XR foot LT min 3V - 04/04/2025 15:15 CDT HISTORY: 34 years old Female with foot pain COMPARISON: None available TECHNIQUE: Three view(s) FINDINGS/ IMPRESSION: There are no fractures or dislocations.Joint spaces are within normal limits. Reviewed, dictated and finalized at location A.
--- OUTSIDE RECORDS SUMMARY | 2025-04-04 14:54 | XMS_ITS | Clinical Summary ---
Author Organization [facility] Address [address] [place] [address] Care Team Providers Care Geologist Name Role Phone Ej Stevens MD Primary Care Provider + [phone] Source Comments [facility],non-owned Affiliates and Associated Physician Practices is amultiple site organization consisting of ambulatory clinics and hospital sitesin [place], [place], [place] and [place]. This disclosure is being madepursuant to the Care Everywhere program and may not contain all information available regarding this patient. Last updated 18.[facility] [employer] Allergies No known active allergies Medications * Be aware that medications may not be up to date on this document. Alwaysverify current medications with the patient. 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 Gender Identity Not on file Sexual Orientation Not on file Plan of Treatment Health Maintenance Due Date Last Done Comments HIV SCREENING 11/18/2007 HEPATITIS C SCREENING 11/13/2010 DTAP/TDAP/TD VACCINES (1 - Tdap) 11/18/2011 HEPATITIS B VACCINE (1 of 3 - 19+ 3-dose series) 11/18/2011 HPV VACCINE (1 - 3-dose SCDM series) 11/18/2019 COVID-19 VACCINE (1 - 2024-2 5 season) 2024 DEPRESSION SCREENING 09/14/2024 INFLUENZA VACCINE (#1) 2025 ZOSTER VACCINE (1 of 2) 2042 HIB VACCINE Aged Out No longer eligi ble based on patient's age to complete this topic MENINGOCOCCAL (Group B) VACC INE SHARED DECISION-MAKING Aged Out No longer eligibl e based on patient's age to complete this topic MENINGOCOCCAL GROUPS A/C/Y/W VACCINE Aged Out No longer eligible b ased on patient's age to complete this topic PNEUMOCOCCAL VACCINE Aged Out No long er eligible based on patient's age to complete this topic Insurance [facility] Care Teams Geologist Relationship Specialty Start Date End Date Ej Stevens MD [phone] [id number] PCP - General 11/10/19
--- OUTSIDE RECORDS SUMMARY | 2025-04-04 14:54 | XMS_ITS | Continuity of Care Document ---
Author Organization [place] - [facility], [facility] Internal Med [facility] Address [address] [facility] 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 Plan of Treatment Reminders Order Date Submit Date Provider Last Modified By Organization Details Last Modified Time Details Appointments Any 15 2024 01:00P MATILDA Montoya Not available Not available Not available Any 2024 01:15P M Nadya Stevens MD Not available Not available Not available Lab None recorded. Referral None recorded. Procedures None recorded. Surgeries None recorded. Imaging XR, foot [address] [facility], [address], [place], [address], 04/04/2025 15:08:11 XR, foot, 3 or more view [address] [facility], [address], [place], [address], 04/04/2025 15:08:11 XR, toe(s), 2 or more view [address] [facility], [address], [place], [address], 04/04/2025 15:08:11 XR, lumbosacr al spine, 2 or 3 view 2024 025 [email or web address] Not available 04/04/2025 15:08:11 Medication Orders triamcino lone acetonide 0.1 % topical cream 2024 [address] [place] [facility] [address] [facility], [address] [facility], [place], [address], 04/04/2025 15:01:10 Patient TargetsNo targets recorded. Patient Instructions Encounter Date Encounter Id Patient Instructions Last Modified By Organization Details Last Modified Time 04/04/2025 [id number] Continue to rest , ice, elevate, and use compression on both feet. Use cream on area of itchiness. Keep spot clean and dry. [email or web address] Not available 04/04/2025 15:01:04 Reason for Referral None Reported. Problems Name Problem SNOMED Code Status Onset Date Resolution Date Notes Provider Name and Address Organization Details Recorded Time Dyspnea 061416754 Completed 201809/29/2022 Not Available [facility] 3 15:15:27 Anxiety 52500932 Active 2018 Not Available [facility] 3 15:15:27 Asthma 385953502 Active 2021 Not Available [facility] 3 15:15:27 Chronic hoarsenes s 83615561589 05 Active 2022 Devorah acosta RMA null, [place] [facility] 3 15:28:48 Steatotic liver disease 368212384 Active 2022 Devorah acosta RMA null, [place] [facility] 3 15:28:58 Smoker 91142440 Active 2022 Devorah acosta RMA null, [place] [facility] 3 15:28:57 Pain in throat 761071162 Completed 202207/15/2023 Devorah acosta RMA null, [place] [facility] 3 15:28:51 Polyp of vocal cord 3161781 Completed 202207/15/2023 Devorah acosta RMA null, [place] [facility] 3 15:28:54 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 57829387 Completed 202207/15/2023 Devorah acosta RMA null, [place] [facility] 3 15:29:01 Gastroeso phageal reflux disease 273861887 Active 2022 Devorah acosta RMA null, [place] [facility] 3 15:28:45 Acne 05797593 Active 2023 Nadya Stevens MD [address], [place], [address] , [facility] 4 15:21:42 Plantar fasciitis 143142380 Active 2023 Nadya Stevens MD [address], [place], [address] , [facility] - [facility] 4 15:26:51 Low back pain 243111022 Active 2023 MATILDA Manuel [address], [place], [address] , [facility] - [facility] 5 14:20:31 Obesity 699095871 Active 2023 Nadya Stevens MD [address], [place], [address] , [facility] 4 15:27:46 Upper respirato ry infection 16329003 Active 2024 Carmen Roldan MA null, [place] [facility] [place] [facility] 5 11:59:07 Pain of toe of left foot 74585186718 9108 Active 2024 MATILDA Manuel [address], [place], [address] , [facility] 5 14:19:01 Pain in right foot 65231384377 9107 Active 2024 MATILDA Manuel [address], [place], [address] , [facility] 5 14:19:31 Pruritic rash 73306158 Active 2024 MATILDA Manuel [address], [place], [address] , [facility] 5 14:22:52 Problem Notes None recorded. Procedures Surgical History Date Name Laterality Status Provider Name and Address Organization Details Recorded Time 04/17/20 DIRECT MICROSCOPIC LARYNGOSCOPY (SURG) completed Sulema Gr RN [facility] 04/22/2023 15:47:22 Imaging Results None recorded. Procedure Notes None recorded. Medical Equipment None Reported. Allergies No known drug allergies Medications Name Sig Start Date Stop Date Status Note LastModified by Organization Details LastModified Time amoxicillin 500 mg capsule TAKE 1 CAPSULE BY MOUTH THREE TIMES A DAY FOR 7 DAYS 01/04 completed Not Available Not Available Not Available prednisone 10 mg tablet 11/14 completed Not Available Not Available Not Available doxycycline hyclate 100 mg capsule TAKE 1 CAPSULE BY MOUTH TWICE A DAY FOR 7 DAYS 06/22 completed Not Available Not Available Not Available albuterol sulfate 2.5 mg/3 mL (0.083 %) solution for nebulizatio n INHALE CONTENTS OF TWO VIALS VIA NEBULIZER EVERY 4 TO 6 HOURS NEEDED ONLY 09/04 completed Not Available Not Available Not Available trazodone 50 mg tablet Take 1 tablet every day by oral route at bedtime. active Not Available Not Available No t Available Tab-A-Nessa tablet 07/19 completed Not Available Not Available Not Available ibuprofen 800 mg tablet Take 1 tablet 3 times a day by oral route as needed for 10 days. active Not Available Not Available No t Available fluconazole 150 mg tablet 07/19 completed Not Available Not Available Not Available benzonatate 200 mg capsule TAKE 1 CAPSULE BY MOUTH THREE TIMES A DAY NEEDED FOR COUGH 01/04 completed Not Available Not Available Not Available ketotifen 0.025 % (0.035 %) eye drops 11/14 completed Not Available Not Available Not Available hydrocodone 5 mg-acetamin ophen 325 mg tablet 06/06 completed Not Available Not Available Not Available minocycline 100 mg capsule TAKE 1 CAPSULE BY MOUTH EVERY 12 HOURS 04/03 completed Not Available Not Available Not Available famotidine 40 mg tablet TAKE 1 TABLET BY MOUTH DAILY 01/04 completed Not Available Not Available Not Available prednisone 20 mg tablet TAKE 3 TABLETS DAILY FOR 3 DAYS, THEN 2 TABLETS DAILY FOR 3 DAYS THEN 1 TABLET DAILY FOR 3 DAYS 06/22 completed Not Available Not Available Not Available terconazole 0.8 % vaginal cream 07/19 completed Not Available Not Available Not Available penicillin V potassium 500 mg tablet 09/04 completed Not Available Not Available Not Available phentermine 37.5 mg tablet PLEASE SEE ATTACHED FOR DETAILED DIRECTION S 01/04 completed Not Available Not Available Not Available acetaminoph en 300 mg-codeine 30 mg tablet 09/04 completed Not Available Not Available Not Available fexofenadin e 180 mg tablet 07/19 completed Not Available Not Available Not Available triamcinolo ne acetonide 0.1 % topical cream APPLY A THIN LAYER TO THE AFFECTED AREA(S) BY TOPICAL ROUTE 2 TIMES PER DAY 2024 active Not Available Not Available Not Avai lable meloxicam 7.5 mg tablet 07/19 completed Not Available Not Available Not Available amoxicillin 875 mg tablet TAKE 1 TABLET BY MOUTH EVERY 12 HOURS 06/22 completed Not Available Not Available Not Available famotidine 20 mg tablet 07/19 completed Not Available Not Available Not Available IBU 600 mg tablet 07/19 completed Not Available Not Available Not Available dicyclomine 20 mg tablet 07/19 completed Not Available Not Available Not Available pantoprazol e 40 mg tablet,evangelist yed release TAKE 1 TABLET BY MOUTH EVERY DAY active Not Available Not Available No t Available buspirone 10 mg tablet TAKE 1 TABLET TWICE A DAY BY ORAL ROUTE NEEDED. 06/22 completed Not Available Not Available Not Available prednisone 50 mg tablet TAKE 1 TABLET BY MOUTH EVERY DAY FOR 5 DAYS 01/04 completed Not Available Not Available Not Available promethazin e 25 mg tablet 07/19 completed Not Available Not Available Not Available Advair Diskus 250 mcg-50 mcg/dose powder for inhalation Inhale 1 puff twice a day by inhalatio n route for 90 days. 04/04 completed VIVIAN ok to rf / ds Not Available Not Available Not Available gabapentin 300 mg capsule TAKE 1 CAPSULE BY MOUTH THREE TIMES A DAY active Not Available Not Available No t Available cephalexin 500 mg tablet TAKE 1 TABLET BY MOUTH EVERY 12 HOURS FOR 7 DAYS 06/22 completed Not Available Not Available Not Available montelukast 10 mg tablet 07/19 completed Not Available Not Available Not Available mupirocin 2 % topical ointment 07/19 completed Not Available Not Available Not Available gabapentin 100 mg capsule 07/19 completed Not Available Not Available Not Available zolpidem 10 mg tablet Take 1 tablet every day by oral route as needed. 06/22 completed Not Available Not Available Not Available methylpredn isolone 4 mg tablets in a dose pack 07/19 completed Not Available Not Available Not Available albuterol sulfate HFA 90 mcg/actuati on aerosol inhaler INHALE 1 PUFF BY MOUTH EVERY 4 HOURS NEEDED FOR SHORTNESS OF BREATH OR WHEEZING active Not Available Not Available No t Available ondansetron 4 mg disintegrat ing tablet 07/19 completed Not Available Not Available Not Available fluticasone propionate 50 mcg/actuati on nasal spray,suspe nsion SPRAY 1 SPRAY INTO EACH NOSTRIL EVERY 12 HOURS 09/04 completed Not Available Not Available Not Available dicyclomine 10 mg capsule 07/19 completed Not Available Not Available Not Available amoxicillin 875 mg-potassiu m clavulanate 125 mg tablet TAKE 1 TABLET BY MOUTH EVERY 12 HOURS FOR 10 DAYS 01/04 completed Not Available Not Available Not Available amoxicillin 500 mg-potassiu m clavulanate 125 mg tablet TAKE 1 TABLET BY MOUTH EVERY 12 HOURS FOR 7 DAYS 06/22 completed Not Available Not Available Not Available cyclobenzap rine 5 mg tablet 07/19 completed Not Available Not Available Not Available levonorgest rel 0.15 mg-ethinyl estradiol 30 mcg tablets,3 mos pack(91) TAKE 1 TABLET BY MOUTH EVERY DAY 06/22 completed Not Available Not Available Not Available nitrofurant oin monohydrate /macrocryst als 100 mg capsule 09/04 completed Not Available Not Available Not Available Lutera (28) 0.1 mg-20 mcg tablet 06/22 completed Not Available Not Available Not Available lactulose 10 gram/15 mL oral solution 07/19 completed Not Available Not Available Not Available chlorhexidi ne gluconate 0.12 % mouthwash PLACE [address] TWICE A DAY BY MUCOUS MEMBRANE ROUTE - SPIT, DO NOT SWALLOW 06/22 completed Not Available Not Available Not Available L norgest/E estradiol-E estrad 0.15 mg-30 mcg (84)/10 mcg(7) tabs,3mos TAKE 1 TABLET BY MOUTH DAILY active Not Available Not Available No t Available calcium 600 mg (as carbonate)- vitamin D3 10 mcg (400 unit) tablet 11/14 completed Not Available Not Available Not Available Symbicort 160 mcg-4.5 mcg/actuati on HFA aerosol inhaler Inhale 2 puffs twice a day by inhalatio n route. active Not Available Not Available No t Available Dulera 200 mcg-5 mcg/actuati on HFA aerosol inhaler Inhale 2 puffs twice a day by inhalatio n route. 01/04 completed Not Available Not Available Not Available Meade-Linyah 0.25 mg-0.035 mg tablet 07/19 completed Not Available Not Available Not Available Breo Ellipta 100 mcg-25 mcg/dose powder for inhalation 07/19 completed Not Available Not Available Not Available Trelegy Ellipta 100 mcg-62.5 mcg-25 mcg powder for inhalation Inhale 1 puff every day by inhalatio n route. active Not Available Not Available No t Available Airsupra 90 mcg-80 mcg/actuati on HFA aerosol inhaler INHALE 2 INHALATIO NS BY MOUTH 4 TIMES A DAY NEEDED. 04/04 completed Not Available Not Available Not Available Vitals Date Recorded Body height Body mass index (BMI) Body weight Body temperature Oxygen saturation Oxygen saturation in Arterial blood by Pulse oximetry Heart rate Systolic And Diastolic Provider Name and Address Organization Details Last Updated DateTime 5 154.94 cm 46.1 kg/m2 019079. 54 g 97.6 [degF] 98 % 98 % 97 /min 132/67 mm[Hg] Rola WR[facility] - [facility] 5 14:09:39 Social History Question Answer Notes LastModified by OrganizDeliv Details LastModified Time Tobacco Smoking Status Current Every Day Smoker Not Available [facility] 11/12/2022 15:13:14 What Is Your Level Of Caffeine Consumption? Heavy [id number] Information not available 11/12/2022 In The 14 Days Before Symptom Onset, Have You Had Close Contact With A Laboratory-confirm ed COVID-19 While That Case Was Ill? No [id number] Information not available 11/12/2022 In The 14 Days Before Symptom Onset, Have You Had Close Contact With A Person Who Is Under Investigation For COVID-19 While That Person Was Ill? No [id number] Information not available 11/12/2022 What Type Of Diet Are You Following? REGULAR [id number] Information not available 11/12/2022 How Much Tobacco Do You Smoke? 1 PPD [id number] Information not available 11/12/2022 Have You Recently Traveled Abroad? No [id number] Information not available 11/12/2022 Sex: Unknown Functional Status Question Answer Note LastModified by [employer] Details LastModified Time Do you use any illicit or recreational drugs? No [id number] Information not available 11/12/2022 Do you or have you ever used any other forms of tobacco or nicotine? No [id number] Information not available 11/12/2022 What is your level of alcohol consumption? None [id number] Information not available 11/12/2022 What is your exercise level? Occasional [id number] Information not available 11/12/2022 Mental Status None recorded. Family History Relationship Description Onset Age of this Age Resolved Age Notes LastModified by Organization Details LastModified Time Brother Malignant neoplasm of brain [id number] Not available 11/12/2022 15:13:29 Unspecified Relation Malignant neoplasm of ovary patern al side [id number] Not available 11/12/2022 15:13:29 Medical History Condition Response MRSA N BACK INJECTIONS N ALLERGIES/HAYFEVER N LUNG DISEASE/DISORDER N ESRD N HISTORY OF DRUG ABUSE N INSOMNIA N COPD N RADIATION / CHEMOTHERAPY N HIGH CHOLESTEROL / HYPERLIPIDEMIA N HYPERTHYROIDISM N PVD N BLOOD DISEASES N EAR OR HEARING PROBLEMS N HYPOTHYROIDISM N SHINGLES N DEPRESSION (INCLUDING POST ) N BACK / NECK PROBLEMS N HAVE YOU BEEN HOSPITALIZED OR SEEN IN [facility] ER IN THE PAST YEAR ? N FAILED BACK SYNDROME N STROKE/TIA N POLYCYSTIC OVARIES N OBESITY N HISTORY WITH COMPLICATIONS WITH ANESTHES [place] ? N ANEURYSM N Do you have Advance directive? N USE OF BLOOD THINNERS N NO SIGNIFICANT PAST MEDICAL HISTORY N DIABETES, TYPE N VON WILLIBRAND'S DISEASE N PARATHYROID DISEASE N ENT N SEASONAL ALLERGIES N HEARTBURN / REFLUX N POST LAMINECTOMY SYNDROME N HEPATITIS / LIVER DISEASE N SLEEP DISORDER N ARTERIAL INSUFFICIENCY N HEADACHES/MIGRAINES N SEIZURES/EPILEPSY N CHF N PACEMAKER N DIZZINESS N HEART DISEASE/HEART PROBLEMS N AIDS/HIV N NEUROPSYCHOLOGICAL N HYPERTENSION N CANCER: SPECIFY N TOURETTE'S N BLOOD TRANSFUSION N ANESTHESIA COMPLICATIONS N ANEMIA/BLOOD DISORDER N CHRONIC EAR INFECTIONS N ATRIAL FIBRILLATION N AUTOIMMUNE DISEASE N TUBERCULOSIS N Gynecological HistoryNo gynecological history recorded. Obstetrics History GPAL:G 0 P 0 0 0 0 Past Encounters Encounter ID Performer Location Encounter Start Date Encounter Closed Date Diagnosis/Indication Diagnosis SNOMED-CT Code Diagnosis ICD10 Code Diagnosis Note [id number] Nadya Stevens MD [facility] [address] [facility] [place] [address] 04/04/2025 13:58:01 04/04/2025 15:08:11 Pain of toe of left foot 8809941868 87169 M79.675 Pain in right foot 92948 90997 67378 M79.671 Low back pain 739802074 M54.50 Pruritic rash 65087943 L 28.2 Health Concerns Section Related Observation LastModified by Organization Detai ls LastModified Time None Recorded Concern Status LastModified by Organization Details LastModified Time None Recorded Payers Encounter Date Sequence Insurance Name Policy Number Policy Minor Covered Member ID Minor Member ID Guarantor Name 04/04/2025 1 [facility] (MEDICAID HMO) [id number] Danay Lloyd [id number] Danay Lloyd Notes Date Note Type Note Provider Name and Address Organization Details Recorded Time 04/04/2025 text/html Patient is a 34y /o a female who is here for bilateral pain. She states that Her left foot she had fallen and broken her two toes but never had gone to urgent care. She reports that she has taped her toes She also all states she has been using tylenol and ice. She states that she has been compensating with her right foot and has increased tenderness and pain as well. She also states her lower back as been hurting with7/10 pain but noticed it when she hurt her left foot. She is requesting xrays. She denies any injury but does report she had an old fracture years prior. She denies chest pain, shortness of breath, worsening pain, or redness at this time. Sulema Murrieta, NANCY-C [address] [facility] [address], [place], [address], [place] [facility] 04/04/2025 15:01:32 OBGyn Episode No OBEpisode recorded.
--- OUTSIDE RECORDS SUMMARY | 2025-04-04 14:54 | XMS_ITS | Clinical Summary ---
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 Name Role Phone Unavailable Primary Care Provider Unavailabl e Social History Tobacco Use Types Packs/Day Years Used Date Smoking Tobacco: Never Assessed Comments Unknown Sex and Gender Information Value Date Recorded Sex Assigned at Not on file Legal Sex Female 2:08 PM CDT Gender Identity Not on file Sexual Orientation Not on file Last Filed Vital Signs Vital Sign Reading Time Taken Comments Blood Pressure 112/72 05/25/2017 3:48 PM CDT Pulse 95 05/25/2017 3:48 PM CDT Temperature - - Respiratory Rate - - Oxygen Saturation - - Inhaled Oxygen Concentration - - Weight 62.6 kg (138 lb) 05/25/2017 3:48 PM CDT Height 154.9 cm (5' 1) 05/05/2017 9:19 AM CDT Body Mass Index 26.07 05/05/2017 9:19 AM CDT Plan of Treatment Health Maintenance Due Date Last Done Comments Cervical Cancer Screening Pa p Smear (Age 30 to 64) Every 3 Years 1992 Annual Physical 11/18/1995 Hepatitis C 2010 DTaP, Tdap and Td Vaccines ( 1 - Tdap) 11/18/2011 Hepatitis B Vaccines (1 of 3 - 19+ 3-dose series) 11/18/2011 HPV Vaccines (1 - 3-dose SCD M series) 11/18/2019 Cervical Cancer Screening Pa p with HPV Testing (Age 30 to 64) Every 5 Years 2022 Cervical Cancer Screening with HPV 2022 COVID-19 Vaccine ( - 2023-2 5 season) 2024 Meningococcal B Vaccine Aged Out No l onger eligible based on patient's age to complete this topic Meningococcal Vaccine Aged Out No sera lee eligible based on patient's age to complete this topic Pneumococcal Vaccine: Pediat rics (0 to 5 Years) and At-Risk Patients (6 to 49 Years) Aged Out No longer eligible b ased on patient's age to complete this topic RSV Immunizations Under 20 Months Aged Out No longer eligible based on patient's age to complete this topic
--- OUTSIDE RECORDS SUMMARY | 2025-04-04 14:55 | XMS_ITS | Data Portability ---
Author Organization [place] - [facility] [employer], Main Office Address [address] [place] [address] Care Team Providers Care Terminal Operations Manager Name Role Phone NADYA VINSON Primary Care Provider NADYA VINSON Referring Provider Assessment No assessment recorded. Plan of Treatment Reminders Order Date Submit Date Provider Last Modified By Organization Details Last Modified Time Details Appointments Any 2024 01:00P M MATILDA Manuel Not available Not available Not available Any 2024 01:15P M Nadya Vinson MD Not available Not available Not available Lab lipid panel, serum 2024 025 [facility], [address] [place], [address], 03/03/2025 04:15:06 CMP, serum or plasma 2024 025 [facility], [address] [place], [address], 03/03/2025 04:15:06 lipid panel, serum [address], [address] [place], [address], 07/13/2024 08:26:35 CMP, serum or plasma [address], [address] [place], [address], 07/13/2024 08:26:35 Referral None recorde d. Procedures None recorde d. Surgeries None recorde d. Imaging XR, foot 2024 025 [email or web address] [facility], [address], [place], [address], 04/04/2025 15:08:11 XR, foot, 3 or more view 2024 025 [facility], [address], [place], [address], 04/04/2025 15:08:11 XR, toe(s), 2 or more view 2024 025 [email or web address] [facility], [address], [place], [address], 04/04/2025 15:08:11 XR, lumbosa cral spine, 2 or 3 view 2024 025 Not available 04/04/2025 15:08:11 Medication Orders triamci nolone acetoni de 0.1 % topical cream 2024 025 [facility] [address] In [facility], [address] [place] [address], [address], 04/04/2025 15:01:10 Airsupr a 90 mcg-80 mcg/act uation HFA aerosol inhaler 2024 025 [email or web address] [facility] [address], [address], 04/04/2025 14:10:18 minocyc line 100 mg capsule 2024 025 PAULINA [facility] [address] [address] [place], [address], 01/04/2025 16:34:57 Trelegy Ellipta 100 mcg-62. 5 mcg-25 mcg powder for inhalat ion 10/09/ 2024 10/09/2 024 [email or web address] [facility] [address] In [facility], [address] [facility], [place], [address], 07/04/2024 11:35:27 minocyc line 100 mg capsule 2023 024 PAULINA [facility] [address] In [facility], [address] [place], [address], 06/22/2024 15:27:15 pantopr azole 40 mg tablet, delayed release 2022 023 [email or web address] 1 [facility] [address] In [facility], [address] [place], [address], 01/04/2025 16:22:14 pantopr azole 40 mg tablet, delayed release 2022 023 [email or web address] 1 [facility] [address] In [facility], [address] [place], [address], 06/22/2024 15:05:13 Patient TargetsNo targets recorded. Patient Instructions Encounter Date Encounter Id Patient Instructions Last Modified By Organization Details Last Modified Time 04/04/2025 [id number] Continue to rest , ice, elevate, and use compression on both feet. Use cream on area of itchiness. Keep spot clean and dry. Not available 04/04/2025 15:01:04 Reason for Referral None Reported. Problems Name Problem SNOMED Code Status Onset Date Resolution Date Notes Provider Name and Address Organization Details Recorded Time Dyspnea 573805547 Completed 201809/29/2022 Not Available [facility] 3 15:15:27 Anxiety 41374704 Active 2018 Not Available [facility] 3 15:15:27 Asthma 204741139 Active 2021 Not Available [facility] 3 15:15:27 Chronic hoarsenes s 48890726959 05 Active 2022 LUCIANA Barnes null, [place] [facility] [place] [facility] 3 15:28:48 Steatotic liver disease 639285442 Active 2022 Devorah acosta RMA null, [place] [facility] 3 15:28:58 Smoker 34885877 Active 2022 Devorah acosta RMA null, [place] [facility] 3 15:28:57 Pain in throat 309543721 Completed 202207/15/2023 Devorah acosta, RMA null, [place] [facility] 3 15:28:51 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 Completed 202207/15/2023 Devorah acosta, RMA null, [place] [facility] 3 15:28:54 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 89912340 Completed 202207/15/2023 Devorah acosta RMA null, [place] [facility] 3 15:29:01 Gastroeso phageal reflux disease 366100619 Active 2022 Devorah acosta RMA null, [place] [facility] 3 15:28:45 Acne 43617248 Active 2023 Nadya Vinson MD [address], [place], [address] , [place] [facility] 4 15:21:42 Plantar fasciitis 045108718 Active 2023 Nadya Vinson MD [address], [address], [place], [address] , [place] [facility] 4 15:26:51 Low back pain 826452716 Active 2023 MATILDA Manuel [address], [address], [place], [address] , [place] [facility] 5 14:20:31 Obesity 739171248 Active 2023 Nadya Vinsno MD [address], [place], [address] , [facility] [facility] 4 15:27:46 Upper respirato ry infection 73761254 Active 2024 Carmen Roldan MA [facility], [facility] 5 11:59:07 Pain of toe of left foot 25738347753 9108 Active 2024 MATILDA Manuel [address], [place], [address] , [facility] [employer] [facility] 5 14:19:01 Pain in right foot 93122514505 9107 Active 2024 MATILDA Manuel [address], [place], [address] , [facility] [facility] 5 14:19:31 Pruritic rash 88810345 Active 2024 MATILDA Manuel [address], [place], [address] , [facility] [employer] [facility] 5 14:22:52 Problem Notes None recorded. Procedures Surgical History Date Name Laterality Status Provider Name and Address Organization Details Recorded Time 04/17/20 DIRECT MICROSCOPIC LARYNGOSCOPY (SURG) completed Sulema Gr RN [facility] [employer] [facility] 04/22/2023 15:47:22 Imaging Results None recorded. Procedure [...] completed Not Available Not Available Not Available [place] 0.25 mg-0.035 mg tablet 07/19 completed Not [...] mass index (BMI) Body weight Body temperature Heart rate Oxygen saturation Oxygen saturation in Arterial blood by Pulse oximetry Systolic And Diastolic Provider Name and Address Organization Details Last Updated DateTime 5 154.94 cm 42.7 kg/m2 224045. 88 g 97.6 [degF] 90 /min 98 % 98 % 116/60 mm[Hg] Devorah ly Alisa [employer] [facility] [employer] 5 16:20:01 Date Recorded Body height Body mass index (BMI) Body weight Body temperature Oxygen saturation Oxygen saturation in Arterial blood by Pulse oximetry Heart rate Systolic And Diastolic Provider Name and Address Organization Details Last Updated DateTime 5 154.94 cm 46.1 kg/m2 228063. 54 g 97.6 [degF] 98 % 98 % 97 /min 132/67 mm[Hg] Rola cameron [employer] [facility] [employer] 5 14:09:39 Date Recorded Body height Body mass index (BMI) Body weight Body temperature Heart rate Oxygen saturation Oxygen saturation in Arterial blood by Pulse oximetry Systolic And Diastolic Provider Name and Address Organization Details Last Updated DateTime 3 154.94 cm 42.7 kg/m2 185800. 88 g 98.1 [degF] 92 /min 98 % 98 % 120/80 mm[Hg] Viktoriya Vu MA [employer] 3 11:44:24 Date Recorded Body weight Body mass index (BMI) Body height Body temperature Heart rate Oxygen saturation Oxygen saturation in Arterial blood by Pulse oximetry Systolic And Diastolic Provider Name and Address Organization Details Last Updated DateTime 4 419077. 28 g 42.5 kg/m2 154.94 cm 97.5 [degF] 87 /min 98 % 98 % 116/80 mm[Hg] LUCIANA Garcia [employer] [facility] [employer] 4 14:58:40 Date Recorded Body height Body mass index (BMI) Body weight Body temperature Heart rate Oxygen saturation Oxygen saturation in Arterial blood by Pulse oximetry Systolic And Diastolic Provider Name and Address Organization Details Last Updated DateTime 3 154.94 cm 42.9 kg/m2 286400. 47 g 97.6 [degF] 93 /min 98 % 98 % 114/66 mm[Hg] LUCIANA Garcia [place] [facility] 3 15:28:24 Social History Question Answer Notes LastModified by [employer] Details LastModified Time Tobacco Smoking Status Current Every Day Smoker Not Available [facility] 11/12/2022 15:13:14 What Is Your Level Of Caffeine Consumption? Heavy [id number] Information not available 11/12/2022 In The 14 Days Before Symptom Onset, Have You Had Close Contact With A Laboratory-confirm ed COVID-19 While That Case Was Ill? No [id number] 026 Information not available 11/12/2022 In The 14 Days Before Symptom Onset, Have You Had Close Contact With A Person Who Is Under Investigation For COVID-19 While That Person Was Ill? No [id number] 026 Information not available 11/12/2022 What Type Of Diet Are You Following? REGULAR MIGRATION.2547742 026 Information not available 11/12/2022 How Much Tobacco Do You Smoke? 1 PPD [id number].[id number] 026 Information not available 11/12/2022 Have You Recently Traveled Abroad? No [id number].[id number] 026 Information not available 11/12/2022 Sex: Unknown Functional Status Question Answer Note LastModified by [employer] Details LastModified Time Do you use any illicit or recreational drugs? No [id number].[id number] 026 Information not available 11/12/2022 Do you or have you ever used any other forms of tobacco or nicotine? No MIGRATION.[id number] 026 Information not available 11/12/2022 What is your level of alcohol consumption? None MIGRATION.[id number] 026 Information not available 11/12/2022 What is your exercise level? Occasional [id number].[id number] 026 Information not available 11/12/2022 Mental Status None recorded. Family History Relationship Description Onset Age of this Age Resolved Age Notes LastModified by Organization Details LastModified Time Brother Malignant neoplasm of brain [id number] Not available 11/12/2022 15:13:29 Unspecified Relation Malignant neoplasm of ovary patern al side [id number] Not available 11/12/2022 15:13:29 Medical History Condition Response MRSA N ALLERGIES/HAYFEVER N BACK INJECTIONS N LUNG DISEASE/DISORDER N INSOMNIA N HISTORY OF DRUG ABUSE N ESRD N RADIATION / CHEMOTHERAPY N COPD N HIGH CHOLESTEROL / HYPERLIPIDEMIA N HYPERTHYROIDISM N PVD N BLOOD DISEASES N EAR OR HEARING PROBLEMS N HYPOTHYROIDISM N SHINGLES N DEPRESSION (INCLUDING POST ) N BACK / NECK PROBLEMS N HAVE YOU BEEN HOSPITALIZED OR SEEN IN [facility] ER IN THE PAST YEAR ? N FAILED BACK SYNDROME N STROKE/TIA N POLYCYSTIC OVARIES N OBESITY N ANEURYSM N HISTORY WITH COMPLICATIONS WITH ANESTHES IA ? N Do you have Advance directive? N [...] SNOMED-CT Code Diagnosis ICD10 Code Diagnosis Note [id number] Lance Farmer MD [facility] [address] 02/19/2022 00:00:00 02/19/2022 11:50:36 [id number] Lance Farmer [place] [facility] [place] [address] 04/09/2022 00:00:00 04/09/2022 15:25:24 [id number] Nadya Vinson MD [facility] Internal [address] [place] [address] 09/30/2022 00:00:00 09/30/2022 16:24:25 [id number] Julian Camejo MD [facility] [address] [place] [address] [place] [address] 02/25/2023 14:38:37 03/16/2023 10:06:45 Polyp of vocal cord 5818291 J38.1 [id number] Julian Camejo MD [facility] [place] [address] [place] [address] 04/30/2023 14:41:01 04/30/2023 15:46:55 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 58709530 J38.2 [id number] Nadya Vinson MD [facility] Internal [address] [address] 06/03/2023 11:21:51 06/03/2023 11:54:38 Gastroesophageal reflux disease 706428981 K21.9 severe symptoms, lose weight, quit smoking, diet discussed [id number] Nadya Vinson MD [facility] Internal [address] [address] 07/15/2023 15:02:42 07/15/2023 16:07:43 Gastroesophageal reflux disease 841335796 K21.9 quit smoking, diet discussed [id number] Nadya Vinson MD [facility] Internal [address] [address] 06/22/2024 14:44:42 06/22/2024 15:29:52 Adult health examination 857208118 Z00.00 PAP- FLU- NEVERCOVID - NEVER Anxiety 32592178 F41.9 does not want diff meds Asthma 419541733 J45.90 9 not under controltry Trelegy 100 mg , sample Gastroesop hageal reflux disease 859935764 K21.9 prn meds help Smoker 62272241 F17.200 advised to quit Acne 68930923 L70.9 Plantar fasciitis 148915 003 M72.2 care discussed Low back pain 218814305 M54.50 meds help Obesity 438754172 E66.9 advised to lose [id number] Nadya Vinson MD [facility] Internal Med [address] [facility] [place] [address] 01/04/2025 16:14:59 01/04/2025 17:14:49 Adult health examination 614493909 Z00.00 PAP- FLU- NEVERCOVID - NEVER Anxiety 77274203 F41.9 better Asthma 836644502 J45.90 9 change to Airsupra Gastroesop hageal reflux disease 504145300 K21.9 prn meds help Smoker 28136370 F17.200 advised to quit Acne 71395205 L70.9 Low back pain 157079723 M54.50 meds help Obesity 981313064 E66.9 advised to lose [id number] Nadya Vinson MD [facility] Internal [address] [facility] [place] [address] 04/04/2025 13:58:01 04/04/2025 15:08:11 Pain of toe of left foot 8557434866 88059 M79.675 Pain in right foot 31477 62084 44730 M79.671 Low back pain 603579300 M54.50 Pruritic rash 89923785 L 28.2 Health Concerns Section Related Observation LastModified by Organization Detai ls LastModified Time None Recorded Concern Status LastModified by Organization Details LastModified Time None Recorded Advance Directives Directive None Recorded Payers Insurance Date Sequence Insurance Name Policy Number Policy Minor Covered Member ID Minor Member ID Guarantor Name 04/03/2025 1 [facility] (MEDICAID HMO) [id number] Danay Lloyd [id number] Danay Lloyd Notes Date Note Type Note Provider Name and Address Organization Details Recorded Time 06/03/2023 text/html pt here today fo r consistent acid reflux for the last several months. Has tried several different otc remedies with no relief of symptoms. Has had this problem for several years but it has gotten much worse recently.regurgita tion some timesmore at nightno abd pain Nadya Vinson MD [address] [facility], [place], [address], [facility] 06/03/2023 11:53:57 07/15/2023 text/html She is here toda y for a 1 month follow upShe was started on Pantoprazole last month which has helped tremendously. Denies any acid reflux. watching dietstill smokesLast OV:pt here today for consistent acid reflux for the last several months. Has tried several different otc remedies with no relief of symptoms. Has had this problem for several years but it has gotten much worse recently.regurgita tion some timesmore at nightno abd pain Nadya Vinson MD [address], [place], [address], [employer] 07/15/2023 16:05:25 06/22/2024 text/html Pt is here today for a routine follow up. Has not been seen since 07/2023 C/o a rash on her face, said she was given cream around March by her OB dr, had cleared up but is back now. States that it itches, oozes sometimes and it tender to the touch Right heal pain Asthma- has been having SOB, thinks it due to the area cutting the hernández, using alb inhaler prnMeds- Albuterol , using 4 x a day Smoker- smokes 1/2ppd, advised to quitFatty liver- watching diet, need labs GERD- on medMeds- Famotidine 40mg daily prn Low back pain- On meds Does helpMeds- Gabapentin 300mg Anxiety- Not under control, med did not help. no depression, gets anxiety episodes, Buspirone did not help, does not want SSRI, does not want to see psych Obesity- has lost 2 lbs Nadya Vinson MD [address], [place], [address], [employer] 06/22/2024 15:30:26 01/04/2025 text/html Pt is here today for a routine follow up. Has not been seen since 07/2023PT IS FASTING ( Dior ) Asthma- not working all the timesMeds- Albuterol prn Smoker- smokes 1/2ppd, advised to quitFatty liver- watching diet, need labs GERD- on medMeds- Pantoprazole 40mg daily prn Acne- Was on Minocycline in the past (last yr) did seem to helpWould like something called in Low back pain- On meds Does helpMeds- Gabapentin 300mg tid Anxiety- Under control, Buspirone did not help, does not want SSRI, does not want to see psych, NO MEDS NEEDED Obesity- has gained 1 lba Nadya Vinson MD [address], [facility] [address], [place], [address], [employer] 01/04/2025 16:35:20 04/04/2025 text/html Patient is a 34y /o [...] worsening pain, or redness at this time. MATILDA Manuel [address], [facility] [address], [place], [address], [employer] 04/04/2025 15:01:32 OBGyn Episode No OBEpisode recorded.
== END 2025-04-04 14:49 | disposition home or self-care (01) ==
PROVIDERS: PCP Internal Medicine
DX: M79.671 Pain in right foot (principal); M79.675 Pain in left toe(s)
CPT/HCPCS: 73630; 73660

== ENCOUNTER 2025-06-15 08:20 | Outpatient (CLI) | payer OTHER, SELFPAY ==
--- OUTSIDE RECORDS SUMMARY | 2015-06-17 19:00 | XMS_ITS | Continuity of Care Document ---
Author Organization [facility] Address [address] [place] [address] Phone Care Team Providers Care Public Aid Eligibility Assistant Name Role Phone Unavailable Unavailable Unavailable Advance Directives Directive Yes / No Effective Date File Name No Information Encounters Encounter Description Practice Location Reason(s) For Visit Diagnoses Date Provider Providers Copied on Encounter [facility], [address] [facility], [place], [place], [id number], [place] tel:[phone] [facility] No Information 5201 [id number] No Information Referring Provider: RUTH ANN FLORENTINO, [address] [place] [address],, [place], [address]. tel:[phone] Family History Family Member Type Diagnosis Age At Onset No Information Payers Payer name Insurance type Covered constitution party ID Jennifer carlisle(s) [facility] [id number] Social History Type Description Quantity Date Captured Comments Sex Female Smoking Status No Information Chief Complaint And Reason For Visit No Information History Of Present Illness Encounter Date Complaint History Of Prese nt Illness No Information Instructions Date Instruction Additional Infor mation No Information Assessments Type Assessment Date No Information
--- NOTE | ~2025-06-15 | XR_ITS ---
Lumbar spine series Indication: Low back pain Comparison: None Technique: 3 views lumbar spine Findings: 5 nonrib-bearing lumbar-type vertebral bodies. No acute fracture. No listhesis. Vertebral bodies normal height. Disc spaces maintained. No significant degenerative changes. SI joints congruent. Mild cortical irregularity S4 on lateral. IMPRESSION: 1. Mild cortical irregularity and/or fracture of sacrum S4 not excluded. 2. Otherwise no acute abnormality. Reviewed, dictated and finalized at location R.
--- OUTSIDE RECORDS SUMMARY | 2025-06-15 08:27 | XMS_ITS | Clinical Summary ---
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
--- OUTSIDE RECORDS SUMMARY | 2025-06-15 08:27 | XMS_ITS | Clinical Summary ---
Author Organization [facility] Address [address] [place] [address] Phone Care Team Providers Care Food Service Director Name Role Phone Unavailable Primary Care Provider Unavailabl e Social History Tobacco Use Types Packs/Day Years Used Date Smoking Tobacco: Never Assessed Comments Unknown Sex and Gender Information Value Date Recorded Sex Assigned at Not on file Legal Sex Female 9:43 AM CDT Gender Identity Not on file Sexual Orientation Not on file Plan of Treatment Upcoming Encounters Date Type Department Care Team (Late st Contact Info) Description 07/04/2025 1:30 PM CDT [facility] [address] [place] [address] Ash Pineda, LEAD MAN OVER ALL DIES IN PATTERN SHOP, ROD MILL TENDER [address] [place], [place] [id number]
--- OUTSIDE RECORDS SUMMARY | 2025-06-15 08:27 | XMS_ITS | Clinical Summary ---
Author Organization [facility] Address [address] [place] [address] Care Team Providers Care Receiving Specialist Name Role Phone Unavailable Primary Care [...] COVID-19 Vaccine ( - 2023-2 5 season) 2025 Meningococcal B Vaccine Aged Out No l [...]
--- OUTSIDE RECORDS SUMMARY | 2025-06-15 08:27 | XMS_ITS | Clinical Summary ---
Author Organization [facility] Address [address] [facility] [place] [address] Care Team Providers Care Track Liner Operator Name Role Phone Ej Stevens MD Primary Care Provider + [phone] Source Comments [facility],non-owned Affiliates and Associated Physician Practices is amultiple site organization consisting of ambulatory clinics and hospital sitesin [place], [place], [place] and [place]. This disclosure is being madepursuant to the Care Everywhere program and may not contain all information available regarding this patient. 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 Gender Identity Not on file Sexual Orientation Not on file Plan of Treatment Health Maintenance Due Date Last Done Comments HIV SCREENING 11/18/2007 HEPATITIS C SCREENING 11/13/2010 DTAP/TDAP/TD VACCINES (1 - Tdap) 11/18/2011 HEPATITIS B VACCINE (1 of 3 - 19+ 3-dose series) 11/18/2011 HPV VACCINE (1 - 3-dose SCDM series) 11/18/2019 DEPRESSION SCREENING 09/14/2024 COVID-19 VACCINE (2023-2 5 season) 2025 INFLUENZA VACCINE (#1) 2025 ZOSTER VACCINE (1 [...] patient's age to complete this topic Insurance [facility] Care Teams Track Liner Operator Relationship Specialty Start Date End Date Ej Stevens MD [address] [address] PCP - General 11/10/19
== END 2025-06-15 08:21 | disposition home or self-care (01) ==
PROVIDERS: PCP Internal Medicine
DX: R93.89 Abnormal findings on diagnostic imaging of other specified body structures (principal)
CPT/HCPCS: 72100